=== PATIENT | male | born 1935 | race Caucasian/White ===

== ENCOUNTER 2021-08-05 00:13 | Emergency (ER) | payer MEDICARE, OTHER, SELFPAY ==
[2021-08-05 00:14] VITALS: BP 140/50; PULSE 70; RESP 16; TEMP 37.2; O2SAT 91; BMI 19.8
[2021-08-05 00:18] VITALS: BP 140/50; PULSE 70; RESP 16; TEMP 37.2; O2SAT 91
--- NOTE | 2021-08-05 00:44 | EKG12_ITS ---
Test Reason : FALL Blood Pressure : / mmHG Vent. Rate : 067 BPM Atrial Rate : 067 BPM P-R Int : 240 ms QRS Dur : 120 ms QT Int : 440 ms P-R-T Axes : 090 067 -22 degrees QTc Int : 464 ms Sinus rhythm with 1st degree A-V block ST & T wave abnormality, consider inferior ischemia Abnormal ECG Confirmed by MELY GRANDA, ANKIT ([id number]), city editor KENNETH BIGGS ([id number]) on 08/09/2021 10:14:09 AM Referred By: Confirmed By:ANKIT BOONE MD
[2021-08-05] MEDS: 0.9% Normal Saline 1,000 ML 1000 ML IV (01:00)
--- NOTE | 2021-08-05 01:05 | RAD_ITS ---
STUDY: PORTABLE AP UPRIGHT CHEST X-RAY OF 0013 HOURS ON 08/05/2021 REASON FOR EXAM: 86-year-old male with dyspnea. TECHNIQUE: A single view portable AP upright chest x-ray was performed per protocol. COMPARISON: None. 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 Mild demineralization. Borderline cardiomegaly without heart failure. There is a dual-lead pacemaker with distal leads in expected positions. Borderline emphysema. Mild prominence of the lower lobe bronchovascular markings. But, there is no evidence of pulmonary infiltrates, atelectasis, effusion, or pulmonary mass lesions. There is air-filled splenic flexure of the colon beneath the left hemidiaphragm. 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 RAD/Chest 1 View (Portable) IMPRESSION: 1. 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 2. Dual-lead pacemaker with distal leads in expected positions. 3. Borderline cardiomegaly without heart failure. 4. No pulmonary infiltrates, atelectasis, effusion, or pulmonary mass lesions. 5. Mild demineralization. 6. 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 Electronically Signed: Joe Grider MD at 1:56 EDT ,
[2021-08-05 01:06] LABS: Absolute Lymphocyte Count 1.77 X10^3/uL (0.83-4.51); Absolute Neutrophil Count 11.5 X10^3/uL (2.0-7.7); Basophil# 0.02 X10^3/uL; Basophil% 0.1 % (0-1); Hematocrit 42.3 % (40-54); Hemoglobin 14.7 g/dL (13.0-16.5); Lymphocyte # 1.77 X10^3/ul (0.83-4.51); Lymphocyte % 11.1 % (19-41); Mean Corp Hgb Conc 34.8 g/dL (32-36); Mean Corpuscular Hgb 34.8 pg (27.0-32.0); Monocyte# 2.61 X10^3/uL; Monocyte% 16.3 % (0-10); NRBC Flagged by Analyzer 0.1 % (0-5); POSITIVE DIFFERENTIAL YES; Platelet Count 195 K/mm3 (150-450); RBC Distribution Width CV 14.7 % (11.6-14.6); RBC Distribution Width SD 53.5 fl (35.1-43.9); Red Blood Count 4.23 M/mm3 (4.6-6.2)
[2021-08-05 01:18] LABS: Differential Indicated SCAN CRITERIA MET
[2021-08-05 01:23] LABS: Color, Urine Yellow (Yellow); Glucose, Dipstick Normal (Normal); Ketone-Dipstick 15 mg/dl (Negative); Leukocyte Esterase-Dipstick 25 /ul (Negative); Nitrite-Dipstick Negative (Negative); Occult Blood-Urine 25 /ul (Negative); Protein-Dipstick 500 mg/dl (Negative); Urine Bilirubin Dipstick Negative (Negative); Urine Clarity Clear (Clear); Urine Urobilinogen 4 mg/dl (Normal)
[2021-08-05 01:25] LABS: Partial Thromboplast Time 32.6 Seconds (24.1-36.2); Prothrombin Time (Protime)PT. 13.5 SECONDS (11.7-14.9)
[2021-08-05 01:34] LABS: ALB/GLOB Ratio 0.7 RATIO (0.9-2.4); AST(SGOT) 56 U/L (15-37); Alanine Aminotransfer ALT/SGPT 61 U/L (16-61); Albumin, Serum 2.9 g/dL (3.2-5.0); Alkaline Phosphatase 68 U/L (45-117); Anion Gap 11 (5-15); Anisocytosis 1+; BUN 16 mg/dL (7-18); BUN/Creat Ratio 14.4 RATIO (10-20); Calcium,Total 8.9 mg/dL (8.5-10.1); Chloride 97 mmol/L (98-107); Creatinine, Serum 1.11 mg/dL (0.70-1.30); EST Glomerular Filtration Rate 67 mL/min (>60); Est Glom Filt Rate - Afr Amer 81 mL/min (>60); Estimated Creatinine Clearance 46.32 ml/min; Globulin 4.4 g/dL (2.2-4.2); Glucose 136 mg/dL (74-106); Lipase 551 U/L (73-393); Macrocytosis 1+; Potassium 3.5 mmol/L (3.5-5.1); Protein, Total 7.3 g/dL (6.4-8.2); Sodium Level 134 mmol/L (136-145); Troponin-I HS 72 pg/mL (3.0-78.0)
[2021-08-05 01:35] LABS: Atypical Lymphocyte 1+ %
[2021-08-05 01:38] LABS: Bacteria 2+ /hpf (None Seen); Mucous, Urine 1+ /hpf (<or=2+); Red Blood Cells-Urine 0-5 SEEN /hpf (0-5); Squamous Epithelial Cells - UA 0-5 SEEN /hpf (0-5); White Blood Cells 0-5 SEEN /hpf (0-5)
[2021-08-05 01:39] LABS: Amorphous Sediment 1+
[2021-08-05 01:40] LABS: Lactic Acid 1.7 mmol/L (0.4-1.9)
--- NOTE | 2021-08-05 01:51 | EDS_ITS ---
HPI History of Present Illness Chief Complaint: Weakness Informant: patient and family Narrative Narrative: 86-year-old male from [place] visiting his sister presents to the emergency department with generalized weakness. Patient developed diarrhea last Sunday. He states that the diarrhea resolved but he just continues to be weak. He states that food does not taste good. He denies any fevers he denies any shortness of breath. Because food has not been tasting good he has not been taking his medicines because they say to take it with food. He denies any syncope. [facility] Medical History Abdominal aortic aneurysm Home Medications aspirin 325 mg tablet 325 mg PO DAILY@0800 08/07/13 [History Last Taken Unknown] cholecalciferol (vitamin D3) 50 mcg (2,000 unit) tablet (Vitamin D3) 2,000 unit PO DAILY 08/07/13 [History Last Taken Unknown] furosemide 40 mg tablet 40 mg PO TID 08/07/13 [History Last Taken Unknown] levothyroxine 112 mcg tablet 175 mcg PO DAILY 08/07/13 [History Last Taken Unknown] metoprolol tartrate 50 mg tablet 50 mg PO BID 08/07/13 [History Last Taken Unknown] multivitamin with folic acid 400 mcg tablet (Thera) 1 tab PO QODAY 08/07/13 [History Last Taken Unknown] potassium chloride 10 mEq tablet,extended release (Klor-Con) 10 meq PO BID 08/07 [History Last Taken Unknown] spironolactone 25 mg tablet 25 mg PO BID 08/07/13 [History Last Taken Unknown] vitamins A,C,Z-zjrt-avztpr 14,320 unit-226 mg-200 unit capsule (PreserVision AREDS) 1 ea PO QODAY 08/07/13 [History Last Taken Unknown] allopurinol 100 mg tablet 1 tab PO TID 08/05/21 [History Last Taken Unknown] rivaroxaban 15 mg tablet (Xarelto) 1 tab PO DAILY 08/05/21 [History Last Taken Unknown] rosuvastatin 40 mg tablet 1 tab PO DAILY 08/05/21 [History Last Taken Unknown] Allergy/AdvReac Type Severity Reaction Status Date / Time No Known Allergies Allergy Verified 08/05/21 00:15 Surgical History H/O heart bypass surgery Social History (Updated 08/05/21 @ 01:[address] Taye Christina DO) current gender identity: male substance use type: does not use ROS ROS ED ROS Narrative Generalized weakness Constitutional Constitutional ED: Denies chills or weight loss Eyes Eyes: Denies change in vision or diplopia ENT ENT ED: Denies ear pain, rhinorrhea or sore throat Cardiovascular Cardiovascular: Denies chest pain, orthopnea, palpitations or racing heartbeat Respiratory/Chest Respiratory/Chest: Denies cough, dyspnea or orthopnea Gastrointestinal Gastrointestinal: Reports diarrhea and nausea; Denies abdominal pain or vomiting Genitourinary Genitourinary ED: Denies dysuria, hematuria or urinary frequency Musculoskeletal Musculoskeletal: Denies arthralgias or myalgias Integumentary Denies abscess or rash Neurologic Neurologic: Denies headache(s) or weakness Psychiatric Psychiatric: Denies anxiety, depression, suicidal ideation or suicidal thoughts Endocrine Endocrinology: Denies polydipsia, polyphagia or polyuria Allergic/Immunologic Allergic/Immunologic ED: Denies mouth swelling, tongue swelling or urticaria EXAM Physical Exam Const Vital Signs: 08/05/21 00:14 08/05/21 00:18 08/05/21 00:18 Temperature 98.9 F 98.9 F Temperature Source Oral Oral Pulse Rate 70 70 Respiratory Rate 16 16 Respiratory Effort Normal Non-Labored Respiratory Pattern Normal Blood Pressure 140/50 H 140/50 H Blood Pressure Mean 80 Pulse Ox 91 91 Oxygen Delivery Method Room Air Room Air 08/05/21 01:58 Temperature Temperature Source Pulse Rate Respiratory Rate Respiratory Effort Respiratory Pattern Blood Pressure 125/50 H Blood Pressure Mean 75 Pulse Ox Oxygen Delivery Method Positive well nourished and well developed General Appearance ED: well developed HEENT Reports normocephalic, head/scalp atraumatic and moist mucous membranes Eyes PERRL and EOMs intact bilaterally Neck no lymphadenopathy, supple and no JVD Resp normal respiratory effort and clear to auscultation bilaterally Cardio regular rate, regular rhythm and no murmurs GI normal to inspection, nondistended, normoactive bowel sounds and non-tender Palpation: soft Back/Spine no CVA tenderness and normal ROM Extremity normal to inspection General Extremety ED: Negative for edema General Extremity: Negative for edema Neuro oriented x3 and CN's II-XII intact bilaterally Sensorium / Orientation: alert Motor Exam: strength 5/5 throughout Psych mental status grossly normal Mood & Affect: Negative for depressed or tearful Skin no rashes or lesions noted and no wounds MDM MDM MDM Narrative Medical decision making narrative: Patient is COVID-positive. White count is elevated at 16. CMP showed a glucose of 136. Lactic acid is normal. Urinalysis demonstrates no overt infection. My interpretation of the chest x-ray is no acute process. Patient is not orthostatic. He is not hypoxic at rest or with exertion. Patient is currently on day 11 of his COVID infection. Lab Data Attestation: I reviewed the patient's lab results. Labs: Laboratory Results - last 24 hr 08/05/21 08/05/21 08/05/21 00:55 00:55 00:55 WBC 16.0 H RBC 4.23 L Hgb 14.7 Hct 42.3 MCV 100.0 H MCH 34.8 H MCHC 34.8 RDW Std Deviation 53.5 H RDW Coeff of Michele 14.7 H Plt Count 195 MPV 10.0 Immature Gran % (Auto) 0.500 Neut % (Auto) 72.0 H Lymph % (Auto) 11.1 L [place] % (Auto) 16.3 H Eos % (Auto) 0.0 Baso % (Auto) 0.1 Absolute Neuts (auto) 11.5 H Absolute Lymphs (auto) 1.77 Nucleated RBC % 0.1 Diff Path Review May foll Atypical Lymphocytes 1+ Anisocytosis 1+ Macrocytosis 1+ PT 13.5 INR 1.0 APTT 32.6 Sodium 134 L Potassium 3.5 Chloride 97 L Carbon Dioxide 26.0 Anion Gap 11 BUN 16 Creatinine 1.11 Estim Creat Clear Calc 46.32 Est GFR (MDRD) Af Amer 81 Est GFR (MDRD) Non-Af 67 BUN/Creatinine Ratio 14.4 Glucose 136 H Lactic Acid Calcium 8.9 Total Bilirubin 0.50 AST 56 H ALT 61 Alkaline Phosphatase 68 Troponin I High Sens 72 Total Protein 7.3 Albumin 2.9 L Globulin 4.4 H Albumin/Globulin Ratio 0.7 L Lipase 551 H Urine Color Urine Clarity Urine pH Ur Specific [place] Urine Protein Urine Glucose (UA) Urine Ketones Urine Occult Blood Urine Nitrite Urine Bilirubin Urine Urobilinogen Ur Leukocyte Esterase Urine RBC Urine WBC Ur Squamous Epith Cells Amorphous Sediment Urine Bacteria Urine Mucus 07/01/22 07/01/22 00:55 01:17 WBC RBC Hgb Hct MCV MCH MCHC RDW Std Deviation RDW Coeff of Michele Plt Count MPV Immature Gran % (Auto) Neut % (Auto) Lymph % (Auto) [place] % (Auto) Eos % (Auto) Baso % (Auto) Absolute Neuts (auto) Absolute Lymphs (auto) Nucleated RBC % Diff Path Review Atypical Lymphocytes Anisocytosis Macrocytosis PT INR APTT Sodium Potassium Chloride Carbon Dioxide Anion Gap BUN Creatinine Estim Creat Clear Calc Est GFR (MDRD) Af Amer Est GFR (MDRD) Non-Af BUN/Creatinine Ratio Glucose Lactic Acid 1.7 Calcium Total Bilirubin AST ALT Alkaline Phosphatase Troponin I High Sens Total Protein Albumin Globulin Albumin/Globulin Ratio Lipase Urine Color Yellow Urine Clarity Clear Urine pH 6.0 Ur Specific [place] 1.020 Urine Protein 500 H Urine Glucose (UA) Normal Urine Ketones 15 H Urine Occult Blood 25 H Urine Nitrite Negative Urine Bilirubin Negative Urine Urobilinogen 4 H Ur Leukocyte Esterase 25 H Urine RBC 0-5 SEEN Urine WBC 0-5 SEEN Ur Squamous Epith Cells 0-5 SEEN Amorphous Sediment 1+ Urine Bacteria 2+ Urine Mucus 1+ Radiography Diagnostic Testing: Clinical Impression(s) from Imaging Studies Chest X-Ray 08/05/21 01:05 IMPRESSION: 1. 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 2. Dual-lead pacemaker with distal leads in expected positions. 3. Borderline cardiomegaly without heart failure. 4. No pulmonary infiltrates, atelectasis, effusion, or pulmonary mass lesions. 5. Mild demineralization. 6. 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 Electronically Signed: Joe Grider MD at 1:56 EDT , EKG Initial EKG: Attestation: I personally reviewed and interpreted this EKG as follows: Comments: Sinus rhythm with first-degree AV block, ventricular rate of 67 bpm. Discharge Plan Triage Chief Complaint: Weakness ED Provider: Taye Christina Dx/Rx/DC Orders Clinical Impression: COVID-19, Generalized weakness Instructions: Caring for Someone Who Has COVID-19 Prescriptions: No Action furosemide 40 MG tablet 40 mg PO TID aspirin 325 MG tablet 325 mg PO DAILY@0800 potassium chloride [Klor-Con 10] 10 MEQ tablet extended release 10 meq PO BID spironolactone 25 MG tablet 25 mg PO BID metoprolol tartrate 50 MG tablet 50 mg PO BID levothyroxine 112 MCG tablet 175 mcg PO DAILY PreserVision AREDS 1 EACH capsule 1 ea PO QODAY cholecalciferol (vitamin D3) [Vitamin D3] 2,000 UNIT tablet 2,000 unit PO DAILY multivitamin with folic acid [Thera] 1 TABLET tablet 1 tab PO QODAY allopurinol 100 mg tablet 1 tab PO TID Label Comments: TAKE 1 TABLET BY MOUTH THREE TIMES DAILY rosuvastatin 40 mg tablet 1 tab PO DAILY Label Comments: TAKE 1 TABLET BY MOUTH EVERY DAY Xarelto 15 mg tablet 1 tab PO DAILY Label Comments: TAKE 1 TABLET BY MOUTH DAILY DIRECTED Primary Care Provider: Care Physician,No Primary Referrals: Care Physician,No Primary [Primary Care Provider] - Disposition Disposition: Home, Self Care
[2021-08-05 01:58] VITALS: BP 125/50
[2021-08-05 01:59] VITALS: O2SAT 94
[2021-08-05 13:00] LABS: Pathologist Review Reviewed
== END 2021-08-05 02:21 | disposition home or self-care (01) ==
PROVIDERS: Emergency Provider Emergency Medicine; Visit Provider Emergency Medicine
DX: U07.1 COVID-19 (principal); Z79.82 Long term (current) use of aspirin; Z79.890 Hormone replacement therapy; Z79.01 Long term (current) use of anticoagulants; Z79.899 Other long term (current) drug therapy; Z95.1 Presence of aortocoronary bypass graft
CPT/HCPCS: 71045; 80053; 81001; 83605; 83690; 84484; 85025; 85610; 85730; 87426; 93005; 96360; 99284; J7030; A4216